=== PATIENT | female | born 1965 | race Caucasian/White ===

== ENCOUNTER 2016-09-18 15:08 | Emergency (ER) | payer SELFPAY ==
[~2016-09-18] VITALS: Ht 162.6 cm; Wt 58.0 kg
[~2016-09-18 15:08] MED LIST: APPLCAP PO; CALCCHW25 PO; CHRO200T2 PO; GLUC500C3 PO; NAPR220T95 PO; OMEG100037 PO; TAB-TAB PO; VITATAB11 PO
[2016-09-18 15:10] VITALS: BP 154/109; PULSE 56; RESP 20; TEMP 97.8; O2SAT 99
--- NOTE | 2016-09-18 15:16 | PD ---
Physical Exam Date Seen by Provider: September 18, 2016 Time Seen by Provider: 15:15 Narrative 50 year old female presents to the emergency department for re-evaluation of right wrist injury. She went to [facility] yesterday and a splint was applied. She was discharged with pain medication, but states pain is worse. Vital signs reviewed. Patient waiting bed placement. Data Data Last Documented VS Vital Signs Date Time Temp Pulse Resp B/P Pulse Ox O2 Delivery O2 Flow Rate FiO2 09/18/16 15:10 97.8 56 20 154/109 99 Room Air [facility] Supervised Visit with KITA: Carola Moore September 18, 2016 15:16
--- NOTE | 2016-09-18 15:59 | PD ---
HPI Chief Complaint: Injury Time Seen by Provider: 15:47 Travel History International Travel<30 days: No Contact w/Intl Traveler<30days: No Traveled to known affect area: No History of Present Illness HPI 50-year-old female presents to the emergency department complaint of worsening right wrist pain after being seen at [facility] yesterday and it being splinted for a fracture. She says the astro technician who put the splint on to know what they were doing and she is having more pain in the splint than what she was without the splint on. She denies paresthesias, loss of sensation to the affected extremity. Denies fever, vomiting. Has been taking oxycodone with no relief of pain. Has no other medical complaints. No known allergies. No other modifying factors or associated signs and symptoms. PFSH Past Medical History Cancer: No Cardiovascular Problems: No Diabetes: No Endocrine: No Genitourinary: No Hepatitis: No Hiatal Hernia: No Immune Disorder: No Musculoskeletal: No Neurologic: No Psychiatric: No Reproductive: No Respiratory: No Thyroid Disease: No Past Surgical History Body Medical Devices: NONE Ear Surgery: No Gynecologic Surgery: Yes (D&C X2) Social History Tobacco Use: No Substance Use: No Allergies-Medications (Allergen,Severity, Reaction): Coded Allergies: No Known Allergies (Unverified , 09/18/16) Reported Meds & Prescriptions Reported Meds & Active Scripts Active No Active Prescriptions or Reported Medications Review of Systems Except as stated in HPI: all other systems reviewed are Neg Physical Exam Narrative GENERAL: Well-nourished, well-developed female patient, in no acute distress SKIN: Warm and dry. HEAD: Atraumatic. Normocephalic. EYES: Pupils equal and round. No scleral icterus. No injection or drainage. ENT: Mucosa pink and moist. Airway patent. NECK: Trachea midline. CARDIOVASCULAR: Regular rate. RESPIRATORY: No accessory muscle use. GASTROINTESTINAL: Flat. MUSCULOSKELETAL: Volar splint removed: Right wrist is edematous and nonerythematous; without ecchymosis; with tenderness on palpation; no obvious deformity. Fingers are pink and warm and with sensory intact. Right upper x- ray supple and nontender 2+ radial pulses and sensory intact. No obvious deformities. No clubbing. No cyanosis. NEUROLOGICAL: Awake and alert. Oriented 3. No obvious cranial nerve deficits. Motor grossly within normal limits. Normal speech. PSYCHIATRIC: Appropriate mood and affect; insight and judgment normal. Data Data Last Documented VS Vital Signs Date Time Temp Pulse Resp B/P Pulse Ox O2 Delivery O2 Flow Rate FiO2 09/18/16 16:28 156/82 09/18/16 15:10 97.8 56 20 99 Room Air Orders Wrist, Complete (Ant0arc) (09/18/16 15:41) Ice/Cold Pack (09/18/16 15:41) Ketorolac Inj (Toradol Inj) (09/18/16 16:00) Splint Or Brace Apply/Monitor (09/18/16 16:43) Sling Cradle Arm (09/18/16 ) MDM Medical Decision Making Medical Screen Exam Complete: Yes Emergency Medical Condition: Yes Medical Record Reviewed: Yes Differential Diagnosis Splint check or change, wrist fracture, medical clearance Narrative Course 50-year-old female with right wrist fracture that was seen yesterday at [facility] with a volar splint in place. Patient is requesting splint change and reevaluation of the wrist. Splint removed. Right wrist x-ray ordered. Toradol ordered. 1641: Right wrist x-ray concludes Last 24 hours Impressions Wrist X-Ray 09/18/16 1541 Signed Impressions: Service Date/Time: Sunday, September 18, 2016 16:01 - CONCLUSION: 1. Mildly displaced slightly comminuted intra-articular fracture of the distal radius. There is also a mildly displaced ulna styloid fracture. No dislocation. Arron Echeverria MD Sugar tong splint ordered and applied. Arm sling provided for support. Patient has prescription for oxycodone that was given to her by [facility]. Ibuprofen prescribed for home. Instructed patient to follow up with orthopedics within 1 week. Patient verbalizes understanding and agreement with treatment plan. Patient is medically cleared and stable for discharge. Discussed reasons to return to the emergency department. Instructed patient to follow up with primary care provider. Patient agrees with treatment plan. The patients vital signs are stable and the patient is stable for outpatient follow- up and treatment. Patient discharged home, stable and in no acute distress. Diagnosis Primary Impression: Wrist fracture, right Qualified Code: S62.101A - Wrist fracture, right, closed, initial encounter Referrals: Orthopedist Primary Care Physician Patient Instructions: General Instructions, Splint Care (ED), Wrist Fracture in Adults (ED) Departure Forms: Tests/Procedures Additional Instructions: Tylenol or ibuprofen as directed and as needed to reduce pain Continue pain medications as prescribed Rest, ice, compress, and elevate extremity to decrease pain and inflammation Splint for support; do not remove splint to the follow-up with orthopedics Avoid aggravating activity; increase activity as tolerated Follow-up with primary care provider Follow-up with orthopedic Return to the emergency department immediately with worsening symptoms Med/Other Pt SpecificInfo: Prescription(s) given Scripts Ibuprofen 800 Mg Xsl001 Mg PO Q6HR PRN (PAIN) #30 TAB Ref 0 Prov:Mattie Arenas 09/18/16 Disposition: 01 DISCHARGE HOME Condition: Stable Mattie Arenas September 18, 2016 15:59
[2016-09-18] MEDS ORDERED: KETOROLAC TROMETHAMINE 60 MG/2 ML (IM) VIAL IM ONE (16:00)
[2016-09-18 16:28] VITALS: BP 156/82
--- NOTE | 2016-09-18 16:32 | RADRPT ---
EXAM DATE/TIME: 09/18/2016 16:01 [facility] COMPARISON: No previous studies available for comparison. INDICATIONS : Right wrist pain and swelling. Patient tripped over her dog. MEDICAL HISTORY : Prior wrist fracture. SURGICAL HISTORY : None. ENCOUNTER: Initial ACUITY: 1 day PAIN SCORE: 10/10 LOCATION: Right wrist. FINDINGS: Three view examination of the right wrist demonstrates a mildly displaced slightly comminuted intra-a rticular fracture of the distal radius a mildly displaced ulna styloid fracture. CONCLUSION: 1. Mildly displaced slightly comminuted intra-articular fracture of the distal radius. There is also a mildly displaced ulna styloid fracture. No dislocation. Arron Echeverria MD on September 18, 2016 at 16:29 Board Certified Radiologist. This report was verified electronically.
[2016-09-18] MEDS ORDERED: IBUP800T23 PO (16:45)
[2016-09-18 17:18] VITALS: RESP 17
== END 2016-09-18 17:22 | disposition home or self-care (01) ==
LOC: NEPK 15:08
DX: S62.101D Fracture of unspecified carpal bone, right wrist, subsequent encounter for fracture with routine healing (principal); X58.XXXD Exposure to other specified factors, subsequent encounter
CPT/HCPCS: 29125; 73110; 96372; 99283; J1885

== ENCOUNTER 2018-06-21 10:56 | Observation (INO) ==
[2018-06-21] MEDS ORDERED: Chlorhexidine Gluconate 2% 1 Pack (2 Cloths) TOPICAL ONE (11:22)
[2018-06-21] MEDS ORDERED: Metoprolol Tartrate 25 MG Tablet PO ONE (11:22)
[2018-06-21] MEDS ORDERED: Heparin - SQ 10,000 UNITS/ML Vial SQ SCH (11:30)
[2018-06-21] MEDS ORDERED: Sodium Chlor 0.9% Inj 500 ML IV.SIG SCH (12:00)
[2018-06-21] MEDS ORDERED: ceFAZolin Inj 1 GM in Sodium Chlor 0.9% Inj 100 ML IV.SIG SCH (12:00)
[2018-06-21] MEDS ORDERED: Lidocaine 1%/Epinephrine 1:100,000 Inj 20 ML Vial ONE (14:03)
[2018-06-21] MEDS ORDERED: Phenylephrine/NS 1000 MCG/10ML Syringe IV.PUSH ONE (14:15)
[2018-06-21] MEDS ORDERED: Lidocaine PF 1% Inj 5 ML Syringe OTHER ONE (14:15)
[2018-06-21] MEDS ORDERED: Labetalol HCl Inj 100 MG/20 ML Vial IV.CONT ONE (14:15)
[2018-06-21] MEDS ORDERED: Sugammadex Inj 200 MG/2 ML Vial IV.PUSH ONE (15:09)
[2018-06-21] MEDS ORDERED: HYDROmorphone PF Inj 2 MG/ML Vial ONE (15:09)
[2018-06-21] MEDS ORDERED: fentaNYL Citrate Inj 100 MCG/2 ML Ampul ONE (16:31)
[2018-06-21] MEDS ORDERED: LORazepam 0.5 MG Tablet PO PRN (18:42)
[2018-06-21] MEDS ORDERED: HYDROmorphone PF Inj 0.5 MG/0.5 ML Syringe ONE (19:11)
[2018-06-21] MEDS ORDERED: Ketorolac Inj 30 MG/ML (IVP) Vial ONE (19:27)
[2018-06-21] MEDS ORDERED: KCL 20 mEq/D5W/NaCl 0.45% Inj 1,000 ML ONE (19:28)
[2018-06-21] MEDS: KCL 20 mEq/D5W/NaCl 0.45% Inj 1,000 ML IV.CONT SCH (19:40)
[2018-06-22 00:06] VITALS: RESP 16
[2018-06-22] MEDS: Ketorolac Inj 30 MG/ML (IVP) Vial IV.PUSH SCH ×3 (00:09→12:13)
[2018-06-22] MEDS: KCL 20 mEq/D5W/NaCl 0.45% Inj 1,000 ML IV.CONT SCH (04:26)
[2018-06-22 06:35] LABS: Baso % (Auto) 0.3 % (0.0-2.0); Hematocrit 35.4 % (35.0-46.0); Hemoglobin 12.4 gm/dL (11.6-15.3); Lymph # (Auto) 0.9 th/mm3 (1.0-4.8); Lymph % (Auto) 11.1 % (9.0-44.0); Mean Corpuscular Volume 91.5 fL (80.0-100.0); Mean Platelet Volume 7.7 fL (7.0-11.0); Mono # (Auto) 0.7 th/mm3 (0.0-0.9); Mono % (Auto) 8.5 % (0.0-8.0); Neut # (Auto) 6.3 th/mm3 (1.8-7.7); Neut % (Auto) 80.1 % (16.0-70.0); Platelet Count 204 th/mm3 (150-450); Red Blood Count 3.88 mil/mm3 (4.00-5.30); Red Cell Distribution Width 12.6 % (11.6-17.2); White Blood Count 7.9 th/mm3 (4.0-11.0)
[2018-06-22 06:51] LABS: Calcium 7.6 mg/dL (8.5-10.1); Potassium 3.9 meq/L (3.5-5.1)
--- NOTE | 2018-06-22 09:09 | MD ---
cc: Aminta Onofre MD, Heather DATE OF DISCHARGE: 06/22/2018 PROCEDURE : On 06/21/2018, laparoscopy with lysis of adhesions and liver biopsy, robotic-assisted laparoscopic hysterectomy, bilateral salpingo-oophorectomy, sentinel lymph node back mapping, and bilateral pelvic lymphadenectomy. DIAGNOSIS: Endometrial cancer. HOSPITAL COURSE: She did well in her early postoperative period, remained hemodynamically stable, tolerated oral intake. Meyer catheter removed pending voiding. Ins and outs 2300/300+. LABS: Pending. PHYSICAL EXAMINATION: VITAL SIGNS: Afebrile, pulse 65-78, respirations 16, blood pressure 122-140/70-86, O2 saturations greater than or equal to 97%. GENERAL: Alert, oriented. LUNGS: Clear to auscultation. Mild basilar rales. CARDIOVASCULAR: Regular rate and rhythm. ABDOMEN: Soft. Incisions clean and dry. GYNECOLOGIC: No bleeding. EXTREMITIES: Nontender. ASSESSMENT: Postoperative day number 1, doing well in her early postoperative period. The preliminary findings, the steps taken, and preliminary pathology were reviewed. Activities and restrictions were again discussed. Questions were asked and answered. She expressed good understanding. PLAN: I think she will meet criteria for discharge to home later today. Our office number is again made available and she is to contact our office to schedule followup within 2 weeks or to call us should she have any questions or problems. She is to resume prior medications and a prescription is provided for Percocet for pain. MD ZACH Perez/flavio , 06:30 AM , 06:35 AM
[2018-06-22 11:05] VITALS: TEMP 99.3
[2018-06-22 12:23] VITALS: BP 116/69; PULSE 67; O2SAT 99
--- NOTE | 2018-07-07 09:58 | MP ---
cc: Aminta Onofre MD, Heather MD DATE OF OPERATION: 07/06/2018 DATE OF PROCEDURE: 06/21/2018 PREOPERATIVE DIAGNOSIS: Endometrial adenocarcinoma. POSTOPERATIVE DIAGNOSES: 1. Endometrial adenocarcinoma. 2. Peripheral hepatic fibrosis. PROCEDURE: 1. Robotic-assisted laparoscopic hysterectomy. 2. Bilateral salpingo-oophorectomy. 3. Bilateral pelvic lymphadenectomy. 4. Liver biopsy. SURGEON: Aminta Onofre MD TRICHOLOGIST: Hollis pier master assistant. ANESTHESIA: General endotracheal anesthesia. ESTIMATED BLOOD LOSS: 150 mL IV FLUIDS: 2000 mL URINE OUTPUT: 200 mL HISTORY: This is a 52-year-old female with postmenopausal bleeding estimated to be of approximately 1 year's duration, sought evaluation, found to have a prominent endometrial cavity. Biopsy showed grade 1 endometrial adenocarcinoma. She was counseled regarding these findings and recommendations for surgery. She is seen again in the preop holding area where the findings and plan of care are discussed. Questions were asked and answered and she agreed to move forward with surgical evaluation. FINDINGS: Upon laparoscopic evaluation of the peritoneal anatomy, there were no peritoneal implants. The liver diaphragm edges were smooth. The omentum grossly appeared normal. The large and small bowel and adjacent mesentery appeared normal, without implants. The liver had what appeared to be a fibrosis around the peripheral edges in both the right and left side of the liver, suggesting possibly some early fibrotic or cirrhotic changes. She had no known history or prior knowledge of such. The uterus sounded to approximately 10 cm. Once removed, had a large tumor approximately 5.5 cm and it invaded to beyond 50% depth of the myometrium. There was no obvious cervical extension. The tubes and ovaries grossly appeared normal. In the retroperitoneum in the paraaortic and paracaval region, there were no obviously abnormal lymph nodes; however, in the pelvis bilaterally, there were prominent abnormal appearing lymph nodes in the obturator space on the right side and in the obturator space and along the external iliac vessels on the left side. DESCRIPTION OF PROCEDURE: She was taken to the operating room and placed in dorsal lithotomy position where after general endotracheal anesthesia was administered, time out was undertaken. She was identified by site, recognition and hospital ID bracelet and the proposed procedure was reviewed and confirmed. She was carefully positioned in padded [place] stirrups. Her arms were padded and secured to the sides. She was further secured to the operating table with egg crate padding and tape in a cross chest over the shoulder fashion. All sites noted to be properly aligned with no malalignment or pressure points. She was prepped in sterile fashion, draped below the waist, placed in lithotomy position. The cervix was grasped. Uterine cavity was sounded. Cervix was dilated and a VCare manipulator was inserted and secured in usual fashion. Meyer catheter placed in the bladder. She was returned to the low lithotomy position. Change of sterile gloves was undertaken. We completed draping in anticipation of laparoscopy and confirmed that an orogastric tube was in the stomach on suction. With manual elevation of the abdominal wall and direct laparoscopic visualization, a 5 mm cannula was introduced into the left upper quadrant. Carbon dioxide gas was insufflated and an atraumatic entry was confirmed. Under laparoscopic guidance, an 8 mm cannula was placed in the right upper quadrant and left lateral abdomen and a 12 mm cannula was placed in the midline above the umbilicus. The anatomy was surveyed with findings as described above. Due to the abnormal appearing liver, biopsy was obtained using a cup biopsy laparoscopic forceps where biopsy was obtained along the peripheral fibrotic appearing edge on the left lobe of the liver. This was removed, rendered hemostatic with the bipolar cautery and the biopsy was sent for histopathologic analysis. The peritoneal washings were obtained for cytology. She was placed in Trendelenburg position. The small bowel was folded back on its mesenteric root. Three Ray-Bassem sponges were placed around the root of the small bowel mesentery and the robotic system was brought into the operative field and attached in the usual fashion. Monopolar scissors, fenestrated bipolar forceps and ProGrasp manipulators were placed in arms #1, 2, and 3 respectively and I took my place at the surgeon's console. The right round ligament was isolated, cauterized, and transected. The anterior and posterior leaves of the broad ligament were opened. The right ureter was identified. The right infundibulopelvic ligament was isolated. The infundibulum and peritoneum were opened. The infundibulopelvic ligament was isolated to the level of the pelvic brim where it was cauterized and transected. Posterior peritoneum opened along the right side of the uterus and cervix in the right vesicouterine peritoneum dissected off the lower uterine segment and cervix. The right uterine vessels were skeletonized and cauterized. Attention was directed toward the left side. The left round ligament was isolated, cauterized, and transected. The anterior and posterior leaves of the broad ligament were opened. Left ureter was identified. Left infundibulopelvic ligament was isolated. of the pneumoperitoneum was opened. The infundibulopelvic ligament was isolated to the level of the pelvic brim where it was cauterized and transected. Posterior peritoneum opened along the left side of the uterus and cervix and the left vesicouterine peritoneum was dissected off the lower uterine segment and cervix. The left uterine vessels were skeletonized and cauterized. The uterus was now satisfactorily blanched having secured the main blood supply and attention was redirected toward the right side where the right uterine vessels were transected. The cardinal, paracervical and uterosacral ligaments were isolated, cauterized, and transected in a stepwise fashion, thereby freeing the attachments along the right side of the uterus and cervix. On the left side, the left uterine vessels were now transected. The cardinal, paracervical and uterosacral ligaments were isolated, cauterized, and transected in a stepwise fashion, thereby freeing the attachments along the left side of the uterus and the cervix. Circumferential colpotomy was performed the cervix from the upper vagina. The specimen was withdrawn transvaginally which included Uterus, cervix, tubes and ovaries. The pneumo-occluder balloon was placed in the vagina to maintain pneumoperitoneum. Instruments 1 and 3 exchanged for needle tanker truck driver as a 0 Vicryl suture was introduced. The vaginal cuff was secured at the left corner, full-thickness closure, incorporating the edge of the uterosacral ligament and posterior peritoneum, tied via instrument tie. Closure was held on countertraction as a running continuous full-thickness closure was carried across the vaginal apex to the contralateral corner where it was similarly fixed, secured and tied. The needle was cut and removed. The pathology came back with the aforementioned findings and attention was directed toward the retroperitoneum. On the right side, the perivesical, obturator and perirectal spaces were opened. The lymphatics were visually and palpably inspected. There were what appeared to be a group of 2-3 prominent enlarged lymph nodes in the obturator space on the right side. These were isolated and removed using bipolar cautery and sharp dissection, removing them from the space ventral to the obturator nerve. They were placed on the Ray-Bassem sponge in the right pericolic gutter for later retrieval. The remainder of the lymphatics on the right side were carefully inspected. There were no other abnormal areas and in an effort to minimize morbidity, remaining lymphatics were left undisturbed. The periaortic and pericaval regions were visibly and palpably inspected. There were no prominent lymph node abnormalities detected in this region. So, attention was directed toward the left pelvis. Left pelvis: The prominence were noted, obturator space and along the external iliac artery as far as the perivesical, obturator and perirectal spaces were developed. Prominent lymph node along the external iliac vessels was removed with bipolar cautery and sharp dissection and placed in the right pericolic gutter. Then, dissection in the obturator space using bipolar cautery and sharp dissection with blunt dissection was used to free the lymphatics from the space ventral to the obturator nerve and these lymphatics were collected in the right pericolic gutter for later retrieval. A visual and palpable inspection confirmed that there were no remaining abnormalities detected and the remainder of the lymphatics were left undisturbed. The pelvis and sidewall spaces were irrigated. Small bleeders rendered hemostatic with bipolar cautery. Bladder integrity was checked by filling the bladder with saline dyed with methylene blue. It distended nicely under pressure with no defects. There was good peristalsis of the ureters bilaterally. There was a good margin between the bladder edge and the vaginal cuff suture line, so the bladder was drained. Hemostatic Anisa was placed in the lymph node dissection beds and across the vaginal cuff. It was felt that all reasonable surgical objectives in this individual had been completed, so the robotic instruments were removed. The robotic system was disengaged from the operative field. I reentered the bedside under sterile condition. An EndoCatch bag was used to cap to the lymph nodes and brought out through the 12 mm cannula. They were in right and left pelvic lymph nodes appropriately and sent for permanent histopathologic analysis. Next, each of the 3 Ray-Bassem sponges that were placed in the peritoneal cavity were grasped. Each were removed individually and inspected and noted to be removed in their entirety. Visual inspection of the peritoneal cavity confirmed there were no remaining foreign objects in the peritoneal cavity. The sites were hemostatic. Preliminary counts were correct. The 12 mm fascial defect was closed with interrupted 0 Vicryl sutures using a needle fascial closure apparatus. They were tied securely recommended the fascia completely airtight and hemostatic. The remaining cannulas were withdrawn. Carbon dioxide gas was removed from the peritoneal cavity. 3-0 Vicryl subcutaneous, 3-0 Vicryl subcuticular used to close these incisions, followed by Steri-Strip placement. She was placed in the dorsal lithotomy position. Pelvic exam confirmed the vaginal cuff well supported, hemostatic. There were no vaginal lacerations. No remaining foreign objects in the vagina. Final counts were correct. She was returned to dorsal supine position and was pending reversal of anesthesia, when I left the operating room to precede her to the postanesthesia care unit. MD ZACH Perez/esequiel , 07:37 AM , 07:57 AM
== END 2018-06-22 13:44 | disposition home or self-care (01) ==
LOC: HSDC 10:56 → HSDI 10:56 → HCIN 20:14
PROVIDERS: ADMIT Obstetrics & Gynecology Gynecologic Oncology; ATTEND Obstetrics & Gynecology Gynecologic Oncology
DX: C54.1 Malignant neoplasm of endometrium; K74.0 Hepatic fibrosis; N73.6 Female pelvic peritoneal adhesions (postinfective)
CPT/HCPCS: 80048; 85025; 86850; 86900; 86901; 86923; 88112; 88305; 88307; 88309; 88331; 88332; 90774; 94150; 96361; 96374; 96376; G0378; J0690; J1100; J1170; J1644; J1885; J2250; J2370; J2405; J2704; J3010; J3480; J7120